=== PATIENT | male | born 1990 | race Caucasian/White ===

== ENCOUNTER 2019-05-18 03:37 | Emergency (ER) | payer SELFPAY | END 2019-05-18 06:51 | disposition home or self-care (01) | LOC: ERS 03:37 | DX: F10.129 Alcohol abuse with intoxication, unspecified (principal); R11.2 Nausea with vomiting, unspecified; F17.210 Nicotine dependence, cigarettes, uncomplicated; Z87.442 Personal history of urinary calculi | CPT/HCPCS: 99284 ==